=== PATIENT | female | born 1995 | race Hispanic/Latino ===

== ENCOUNTER 2022-11-28 17:38 | Emergency (ER) | payer BC, SELFPAY ==
[2022-11-28 17:39] VITALS: BP 118/79; PULSE 77; RESP 14; TEMP 36.4; O2SAT 100; BMI 23.9
--- NOTE | 2022-11-28 19:10 | EKG12_ITS ---
Test Reason : Blood Pressure : / mmHG Vent. Rate : 082 BPM Atrial Rate : 082 BPM P-R Int : 144 ms QRS Dur : 076 ms QT Int : 386 ms P-R-T Axes : 064 075 051 degrees QTc Int : 450 ms Normal sinus rhythm Normal ECG Confirmed by JEREL GEIGER, JUANI ([id number]), international editorial producer ROBER LAM ([id number]) on 11/30/2022 10:04:30 AM Referred By: SHAILESH Confirmed By:JUANI BELTRÁN MD
--- NOTE | 2022-11-28 19:10 | ED.VIS.CHEST ---
HPI History of Present Illness Chief Complaint: Chest Pain Informant: patient and spouse/S.O. Narrative Narrative: Presents here with significant other who is translating [place]. 2-week persistent chest pressure. No cough. No recent travel surgery mobilizations. No PE or DVT history. No tobacco. No past medical history. No history of similar in the past. Reports symptoms continuing therefore decided come get evaluated. Did not worsen today. No PCP. Last menstrual period November 02. Prior Similar Symptoms: No CVD Risk Factors: Negative for Hypertension, Diabetes, Hypercholesterolemia, Family History 1' </=55 or Smoking PE Risk Factors: Negative for Recent Travel/Surgery, Recent Immobilization, Prior DVT or PE or OCP + Smoking + >/=35 PFSH PFSH Medical History no medical history Home Medications NK 11/28/22 [History Last Taken Unknown] Allergy/AdvReac Type Severity Reaction Status Date / Time No Known Allergies Allergy Verified 11/28/22 17:41 Social History Smoking Status: Never smoker ROS ROS ED Constitutional Constitutional ED: Denies chills, fever(s) or sweats Eyes Eyes: Denies change in vision ENT ENT ED: Denies dysphagia or sore throat Cardiovascular Cardiovascular: Reports chest pain; Denies leg edema, palpitations or racing heartbeat Respiratory/Chest Respiratory/Chest: Denies cough, dyspnea or dyspnea on exertion Gastrointestinal Gastrointestinal: Denies abdominal pain, diarrhea, nausea or vomiting Genitourinary Genitourinary ED: Denies dysuria, hematuria or urinary frequency Musculoskeletal Musculoskeletal: Denies back pain, extremity pain or neck pain Integumentary Denies rash or wounds Neurologic Neurologic: Denies headache(s), paresthesias or weakness EXAM Physical Exam Const Vital Signs: 11/28/22 17:39 11/28/22 19:04 11/28/22 19:18 Temperature 97.6 F L Temperature Source Temporal Pulse Rate 77 Respiratory Rate 14 Respiratory Effort Normal Non-Labored Blood Pressure 118/79 Blood Pressure Mean 92 Pulse Ox 100 Oxygen Delivery Method Room Air Room Air 11/28/22 20:47 11/28/22 21:44 Temperature Temperature Source Pulse Rate 76 79 Respiratory Rate 14 16 Respiratory Effort Blood Pressure 114/66 128/74 H Blood Pressure Mean 82 Pulse Ox 100 98 Oxygen Delivery Method Room Air Positive well nourished and well developed General Appearance ED: well developed and NAD HEENT Reports moist mucous membranes normocephalic and atraumatic Eyes PERRL, EOMs intact bilaterally and conjunctivae normal General Eye ED: Yes normal appearance of both eyes Neck no lymphadenopathy and supple General: Negative for tenderness Chest Wall Chest: Negative for tenderness Resp normal respiratory effort and normal air movement Effort and Inspection: symmetric chest movement; Negative for respiratory distress Cardio regular rate, regular rhythm and no murmurs Peripheral Pulses: pulses 2+ throughout GI normal to inspection, nondistended, normoactive bowel sounds and non-tender Palpation: Negative for guarding or rebound tenderness present Back/Spine no CVA tenderness and no thoracic nor lumbar tenderness Extremity normal to inspection General Extremety ED: Negative for edema or tenderness General Extremity: Negative for edema Neuro oriented x3 and no sensory deficits noted Sensorium / Orientation: awake and alert Skin no rashes or lesions noted and no wounds MDM MDM MDM Narrative Medical decision making narrative: Interventions / MDM: Differential diagnosis: ACS, chest pain Diagnosis considered but do not suspect: Pneumothorax however normal lung sounds and negative chest x-ray, pulmonary embolism however PERC criteria negative and not hypoxic. My EKG interpretation: Sinus rate of 82, no ST or T wave changes Imaging independently reviewed and interpreted by myself: 2 view chest x-ray negative. External documents reviewed: N/A Test considered but not ordered:N/A ED course: 2 weeks of persistent chest pressure. EKG cardiac work-up negative troponin less than 3 per algorithm not cardiac in nature. Chest x-ray negative. Patient reassured, she is given follow-up as an outpatient. Return precautions. All questions were answered. Re-evaluation: stable Disposition discussed with patient/family/significant other: Patient and significant other Case discussed with consulting clinician: N/A Lab Data Labs: Laboratory Results - last 24 hr 11/28/22 11/28/22 11/28/22 19:20 19:20 19:20 WBC 13.8 H RBC 4.92 Hgb 15.1 H Hct 44.0 MCV 89.4 MCH 30.7 MCHC 34.3 RDW Std Deviation 39.8 RDW Coeff of Geovanny 12.1 Plt Count 265 MPV 10.4 Immature Gran % (Auto) 0.400 Neut % (Auto) 58.9 Lymph % (Auto) 31.1 [place] % (Auto) 6.3 Eos % (Auto) 2.5 Baso % (Auto) 0.8 Absolute Neuts (auto) 8.1 H Absolute Lymphs (auto) 4.30 Nucleated RBC % 0 Sodium 137 Potassium 3.7 Chloride 105 Carbon Dioxide 24.0 Anion Gap 8 BUN 11 Creatinine 0.69 Estim Creat Clear Calc 100.41 Est GFR (MDRD) Af Amer 130 Est GFR (MDRD) Non-Af 108 BUN/Creatinine Ratio 16.0 Glucose 89 Calcium 9.1 Troponin I High Sens < 3 L Serum , Qual NEGATIVE Radiography Diagnostic Testing: Clinical Impression(s) from Imaging Studies Chest X-Ray 11/28/22 19:22 IMPRESSION: No acute radiographic abnormalities. Electronically Signed: Sacha Munroe MD at 19:50 EST , Discharge Plan Triage Chief Complaint: Chest Pain ED Provider: Fermin Simmons Dx/Rx/DC Orders Clinical Impression: Chest pain Instructions: ED Chest Pain, Uncertain Cause Prescriptions: No Action NK Primary Care Provider: Care Physician,No Primary Referrals: Clinton Vee MD [Med Staff - Public Relations Specialist] - 3-5 Days Care Physician,No Primary [Primary Care Provider] - Activity Restrictions/Additional Instructions: Cardiac work-up negative. Follow-up for further testing as an outpatient. Return if worsening symptoms. Disposition Disposition: Home, Self Care Discharge Date/Time: 11/28/22 21:45
--- NOTE | 2022-11-28 19:22 | RAD_ITS ---
INDICATION: chest pain EXAMINATION/TECHNIQUE: X-RAY - XR Chest 2 Views COMPARISON: None. FINDINGS: The lungs are clear. The cardiomediastinal silhouette is unremarkable. No pleural effusion or pneumothorax. No acute osseous abnormalities. RAD/Chest PA and Lateral IMPRESSION: No acute radiographic abnormalities. Electronically Signed: Sacha Munroe MD at 19:50 EST ,
[2022-11-28 19:34] LABS: Absolute Neutrophil Count 8.1 X10^3/uL (2.0-7.7); Basophil# 0.11 X10^3/uL; Basophil% 0.8 % (0-1); Eosinophil# 0.35 X10^3/uL; Eosinophils% 2.5 % (0-5); Hemoglobin 15.1 g/dL (12.0-15.0); Lymphocyte % 31.1 % (19-41); Mean Corp Hgb Conc 34.3 g/dL (32-36); Mean Corpuscular Hgb 30.7 pg (27.0-32.0); Mean Corpuscular Volume 89.4 fL (81-99); Mean Platelet Vol. 10.4 fl (6.2-12.0); Monocyte# 0.87 X10^3/uL; Monocyte% 6.3 % (0-10); NRBC Flagged by Analyzer 0 % (0-5); Neutrophil # 8.13 X10^3/uL (2.7-7.7); Neutrophil % 58.9 % (47-70); Platelet Count 265 K/mm3 (150-450); RBC Distribution Width CV 12.1 % (11.6-14.6); RBC Distribution Width SD 39.8 fl (35.1-43.9); Red Blood Count 4.92 M/mm3 (4.2-5.4); White Blood Count 13.8 K/mm3 (4.4-11.0)
[2022-11-28 20:02] LABS: Anion Gap 8 (5-15); BUN 11 mg/dL (7-18); Calcium,Total 9.1 mg/dL (8.5-10.1); Chloride 105 mmol/L (98-107); Creatinine, Serum 0.69 mg/dL (0.55-1.02); EST Glomerular Filtration Rate 108 mL/min (>60); Est Glom Filt Rate - Afr Amer 130 mL/min (>60); Estimated Creatinine Clearance 100.41 ml/min; Glucose 89 mg/dL (74-106); Potassium 3.7 mmol/L (3.5-5.1); Sodium Level 137 mmol/L (136-145); Troponin-I HS < 3 pg/mL (3.0-54.0)
[2022-11-28 20:08] LABS: Internal QC Validated? YES +Cl - CLEAR BKGD; Pregnancy, Serum, hCG Quali. NEGATIVE Negative
[2022-11-28 20:47] VITALS: BP 114/66; PULSE 76; RESP 14; O2SAT 100
[2022-11-28 21:44] VITALS: BP 128/74; PULSE 79; RESP 16; O2SAT 98
== END 2022-11-28 21:45 | disposition home or self-care (01) ==
PROVIDERS: Emergency Provider Emergency Medicine; Visit Provider Emergency Medicine
DX: R07.9 Chest pain, unspecified (principal)
CPT/HCPCS: 71046; 80048; 84484; 84703; 85025; 93005; 99284; A4216